=== PATIENT | female | born 1980 | race Caucasian/White ===

== ENCOUNTER 2017-11-13 09:40 | Day surgery (SDC) | payer MEDICAID ==
[~2017-11-13 09:40] MED LIST: RINGER'S SOLUTION,LACTATED 1,000 ML IV PRN
[2017-11-13] MEDS ORDERED: LIDOCAINE HCL/EPINEPHRINE 50 ML VIAL IJ ONE ×2 (11:05)
[2017-11-13] MEDS ORDERED: RINGER'S SOLUTION,LACTATED 1,000 ML IV ONE (11:40)
--- NOTE | 2017-11-13 12:05 | OR ---
Operative Report - Dictated Report Narrative: DATE OF PROCEDURE: 11/13/2017 INDICATION: 37 year old female with chronic right lower quadrant pain and history of complex right ovarian cyst PREOPERATIVE DIAGNOSIS: Chronic pelvic pain, history of complex right ovarian cyst POSTOPERATIVE DIAGNOSIS: Same, omental and bowel adhesions to left pelvic sidewall and vaginal cuff, right tubo-ovarian adhesions to right pelvic sidewall , simple right ovarian cyst OPERATION: Diagnostic laparoscopy, lysis of adhesions, right ovarian cystotomy SURGEON: Lynette Kapoor D.O. [facility] SUPERVISOR: OR staff ANESTHESIA: General ESTIMATED BLOOD LOSS: Minimal FLUID REPLACEMENT: 1000 mL URINE OUTPUT: 150 mL FINDINGS: Omental adhesions to left pelvic sidewall, small bowel adhesions to the vaginal cuff, adhesions of right tube and ovary to right pelvic sidewall, otherwise normal-appearing anterior and posterior cul-de-sac, normal-appearing liver edge and gallbladder tip SPECIMEN(S): None DRAINS: Bach catheter intraoperatively TECHNIQUE: The patient was taken to the operating room and placed in dorsal lithotomy position after adequate general anesthesia was obtained. A moistened sponge stick was placed into the vagina and a Bach catheter was placed to gravity drainage. Gloves were changed and attention was turned to the abdomen where the umbilicus and suprapubic region were injected with a 1% lidocaine epinephrine was solution. A scalpel was used to score the skin and a 12 mm non- bladed trocar was inserted via direct technique under direct visualization. Pneumoperitoneum was created with CO2 gas. A 5 mm non-bladed trocar was inserted suprapubically and one in the left lower quadrant in a similar fashion. Through these 3 ports the surgery was carried out with findings as noted above. Using the Thunderbeat, omental bowel , and tubo-ovarian adhesions were taken down. Using Kleppinger's, 2 simple ovarian cysts were drained. The CO2 gas was removed from the abdominal cavity. Trochars were removed under direct visualization. The fascia of the 12 mm port was closed with a single 0 Vicryl suture. The skin of all incisions was closed with 4-0 Monocryl and Dermabond. The Bach catheter and vaginal sponge stick were removed. Sponge, lap, instrument, and needle count were correct x 2. DISPOSITION: The patient was awakened and transferred to post anesthesia care unit in good condition.
[2017-11-13] MEDS ORDERED: HYDROmorphone HCL 2 MG/ML VIAL IV PRN (12:19)
[2017-11-13] MEDS ORDERED: HYDROmorphone HCL 2 MG/ML VIAL IV ONE (12:39)
[2017-11-13] MEDS ORDERED: oxyCODONE HCL/ACETAMINOPHEN 1 TAB TABLET PO PRN (13:24)
[2017-11-13] MEDS ORDERED: IBUPROFEN 800 MG TABLET PO PRN (13:25)
[2017-11-13 14:37] VITALS: BP 112/77
== END 2017-11-13 09:41 | disposition home or self-care (01) ==
LOC: AMB 09:40
PROVIDERS: ATTEND Obstetrics & Gynecology
PROC: 0DNW4ZZ Release Peritoneum, Percutaneous Endoscopic Approach (ICD-10-PCS; 2017-11-13)
PROC: 0U904ZZ Drainage of Right Ovary, Percutaneous Endoscopic Approach (ICD-10-PCS; principal; 2017-11-13 11:50)
DX: N83.291 Other ovarian cyst, right side (principal); N73.6 Female pelvic peritoneal adhesions (postinfective); I10 Essential (primary) hypertension; F17.200 Nicotine dependence, unspecified, uncomplicated; Z68.30 Body mass index [BMI] 30.0-30.9, adult